=== PATIENT | female | born 1985 | race African-American/Black ===

== ENCOUNTER → 2023-05-28 14:46 | Outpatient (BNVA) | payer OTHER, SELFPAY | PROVIDERS: Visit Provider Physician Assistant ==

== ENCOUNTER 2023-07-24 08:47 | Outpatient (AMB) | payer OTHER, SELFPAY ==
--- NOTE | 2023-07-24 08:50 | A.OFFVIS_ITS ---
Intake VS Expanded 07/24/23 09:06 BP 119/56 L Blood Pressure Location Rt brachial Blood Pressure Position Sitting Pulse 104 H Pulse Source Pulse Oximeter Temp 98.3 F Temperature Source Tympanic Pulse Oximetry 96 Oxygen Delivery Method Room Air Height 5 ft 6 in Weight 220 lb 3.2 oz BMI 35.5 Body Fat % 42.5 Body Fat Mass 93.4 Fat Free Mass 126.6 Visceral Fat Rating 10.0 Body Water % 41.1 Body Water Mass 90.4 Muscle Mass/Score 120.2 Basal Metabolic Rate/Score 1,771 Intake Visit Reasons: (OV) Gastric Balloon Enrollment Coordinator Required: No Allergies No Known Allergies Allergy (Verified 07/24/23 08:55) HPI HPI Comments History of Present Illness Details Intake Template This is a 37 year old woman who is here to discuss her previous laparoscopic sleeve gastrectomy and obesity concerns. She is status post laparoscopic sleeve gastrectomy at [facility] in 2018. She reports her heaviest weight: 250 and states she lost 70 lb. She notes impulse control issues with respect to dietary choices and states that she has been put on medication to help with her impulse issues and they are not working. She has not contacted the prescriber to explain or concerns. She notes significant GERD worse with weight gain, and intermittent dysphagia related to eating and drinking at the same time Intolerance of dairy/lactose:? N Gluten Sensitivity:? N? Celiac? 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 otherwise denies sleep apnea, diabetes, hypertension, lipid disorders PSH: lap sleeve gastrectomy 2018, [facility] She wakes at:?bed at: Breakfast:?Not following a diet & not interested; Lunch:? snack: Dinner:?snack: After dinner: Other snacks: Liquids: Alcohol intake: ???occ? nicotine: ?denied? marijuana: ??denied? drugs:??denied? caffeine: coffee, sugar & cream Exercise: not exercising & not interested in a plan Last mammogram: N/A Last pap smear: UTD control method: Nexplanon Colonoscopy: N/A HERBER: 1 ESS: 9 GERD: 22 QOL: 78 PFSH Surgical History (Updated 07/24/23 @ 09:08 by Joshua Anand MD, FACS, FASS) Hx of laparoscopic partial gastrectomy Social History (Updated 07/24/23 @ 08:57 by Edyta Miguel, [facility]) Alcohol intake: current Alcohol intake frequency: holidays/special occasions only Alcohol type: hard liquor Patient Tobacco Use Status: Never used Tobacco Review of Systems Const All systems reviewed & are unremarkable except as noted in HPI and below Reports as per HPI Physical Exam On exam, the patient is nontoxic She is animated and talkative but in no acute distress She is having no respiratory difficulty Abdomen is obese but soft with no tenderness Assessment & Plan Assessment & Plan (1) S/P laparoscopic sleeve gastrectomy: Code(s): Z98.84 - Bariatric surgery status (2) BMI 35.0-35.9,adult: Code(s): Z68.35 - Body mass index [BMI] 35.0-35.9, adult (3) GERD (gastroesophageal reflux disease): Code(s): K21.9 - Gastro-esophageal reflux disease without esophagitis Plan The patient initially indicated that she was hopeful she could have a gastric balloon placed, but then expressed concerns regarding her impulsivity and medications not working and asked if I could prescribe a different medication to address her poor diet. The importance of a low-fat/high-fiber/low-carbohydrate and high-protein diet to optimize surgical weight loss was discussed and apparently understood, but the patient noted repeatedly impulse issues that affect her success. She notes that she has seen behavioral health or a psychiatrist who prescribed medications and has not followed up with them. I also reviewed the risk of GERD related to her weight regain and sleeve. I explained that there may be a structural issue with her sleeve that may be amenable to revision, however, without proper diet and exercise, there would be no benefit and she would likely continue to gain weight due to her impulse issues and poor diet. Patient seemed understand the importance of following up with her prescribing physicians regarding her symptoms and has given permission verbally to communicate with them. Patient is interested in obtaining a workup but declined a meal plan or in exercise recommendation. She would like to follow-up after the fasting labs and diagnostic imaging is performed. Explained upfront that it is possible there will not be a problem that requires fixing other than her diet and exercise and she would still like to proceed. Coding Level of Care Code New Pt Level 4 (29368) Diagnoses S/P laparoscopic sleeve gastrectomy Z98.84 BMI 35.0-35.9,adult Z68.35 GERD (gastroesophageal reflux disease) K21.9
[2023-07-24 09:06] VITALS: BP 119/56; PULSE 104; TEMP 36.8; O2SAT 96; BMI 35.5
== END 2023-07-24 09:46 | disposition home or self-care (01) ==
PROVIDERS: Visit Provider Surgery
DX: E66.9 Obesity, unspecified (principal); Z68.35 Body mass index [BMI] 35.0-35.9, adult
CPT/HCPCS: 99204

== ENCOUNTER → 2023-07-24 08:47 | Outpatient (BNVA) | payer OTHER, SELFPAY | PROVIDERS: Visit Provider Surgery ==

== ENCOUNTER 2023-10-13 08:22 | Outpatient (REF) | payer OTHER, SELFPAY ==
--- NOTE | ~2023-10-13 | FL_ITS ---
EXAMINATION: XR FLUOROSCOPY UPPER GI WITH AIR CLINICAL INFORMATION: Postprandial epigastric pain. History of sleeve gastrectomy. COMPARISON: None TECHNIQUE: Fluoroscopic air contrast upper GI examination was performed utilizing standard techniques with thin and thick barium and effervescent granules. Numerous spot images were obtained. FINDINGS: Lateral cine images of the oropharynx and hypopharynx demonstrate normal swallow mechanism with normal epiglottic inversion and soft palate elevation. No tracheal penetration, glottic or subglottic aspiration identified. No nasopharyngeal reflux present. Hypopharyngeal structures appear normal without evidence of mass or diverticulum. There was no significant cricopharyngeal achalasia. Dual and single contrast images of the esophagus demonstrate normal caliber, contour, and mucosal pattern. No evidence of stricture, mass, or ulcerations identified. Esophageal peristalsis was normal. A small hiatal hernia is present. Gastroesophageal reflux is seen up to the thoracic inlet. Dual contrast and single contrast images of the stomach demonstrate a trilobed stomach, likely due to scarring from previous sleeve gastrectomy. Mucosal pattern is normal without evidence of mass, ulceration, or other abnormality. Due to the trilobed shape of the stomach, there is to and fro motion of the barium column prior to emptying into the duodenal bulb. Single and air-contrast images of the duodenal bulb demonstrate no abnormality. The duodenal sweep has a normal appearance, course, and mucosal fold appearance. The imaged proximal jejunum has a normal fold pattern and caliber. FLUOROSCOPY TIME: 4 minutes 4 seconds Number of Spot Images: 9 Number of Cine: 12 DOSE AREA PRODUCT: 3551 uGy-m2 (microgray-meter squared) FL/FL upper GI w air IMPRESSION: 1. Small type I hiatal hernia 2. Significant gastroesophageal reflux 3. 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 This results in a to and fro motion of the barium prior to emptying into the duodenal bulb. This procedure was performed by Fabiano Gil PA-C, and supervised by Dr. Thornton
== END 2023-10-13 08:23 | disposition home or self-care (01) ==
LOC: HO.XRAY 08:22
PROVIDERS: Visit Provider Physician Assistant
DX: K21.9 Gastro-esophageal reflux disease without esophagitis (principal); Z98.84 Bariatric surgery status
CPT/HCPCS: 74246

== ENCOUNTER → 2023-10-13 08:27 | Outpatient (BNV) | payer OTHER, SELFPAY | PROVIDERS: Visit Provider Radiology Diagnostic Radiology | DX: R10.13 Epigastric pain (principal); K44.9 Diaphragmatic hernia without obstruction or gangrene | CPT/HCPCS: 74246 ==

== ENCOUNTER → 2023-10-30 14:48 | Outpatient (BNVA) | payer OTHER, SELFPAY | PROVIDERS: Visit Provider Physician Assistant Surgical ==

== ENCOUNTER 2023-11-18 14:19 | Outpatient (AMB) | payer OTHER, SELFPAY ==
--- NOTE | 2023-11-18 14:24 | A.OFFVIS_ITS ---
Intake VS Expanded 11/18/23 14:41 BP 125/66 Blood Pressure Location Rt brachial Blood Pressure Position Sitting Pulse 70 Pulse Source Pulse Oximeter Temp 98.2 F Temperature Source Temporal Artery Scan Pulse Oximetry 100 Oxygen Delivery Method Room Air Height 5 ft 6 in Weight 220 lb BMI 35.5 Body Fat % 43.0 Body Fat Mass 94.6 Fat Free Mass 125.2 Visceral Fat Rating 10.0 Body Water % 40.7 Body Water Mass 89.6 Muscle Mass/Score 118.8 Basal Metabolic Rate/Score 1,756 Intake Visit Reasons: (ov) Gastric Balloon to [facility] Charging Operator Required: Yes Charging Operator Name: office cmi Allergies No Known Allergies Allergy (Verified 11/18/23 14:31) Medication List - Last Reconciled 11/18/23 by FLORIN Keating etonogestrel (Nexplanon) subdermal methocarbamol 750 mg PO BEDTIME HPI HPI Comments History of Present Illness Details Pt [place] [facility] [place] [facility] [place]. Her goal is to lose weight and achieve a healthy lifestyle. She states that she had the sleeve gastrectomy performed at [facility] by Dr. Menezes in 2016. Her lowest weight was 190 lb. She reports first being concerned about her weight [], highest weight to date was []. Current weight is 220 pounds with a BMI of 35.5. She has tried multiple methods of weight loss including previous LSG at [facility] 03/12/16. She lives with []. She works [] days per week. 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 Breakfast: cream of wheat, 1 egg, sweet bread AM snack: coffee cream and sugar and multi grain crackers Lunch: skip PM snack: sour cream and onion chips Dinner: rice, beans,meat, salad After dinner: cheerios dry (cup) Other snacks: lots of sweet bread Liquids: 64-80 oz water, 12-24 oz coke weekly, 8 oz passionfruit or grape juice 2 x per week Alcohol/marijuana/tobacco intake: 32 oz mojito 2 x per month, no cannabis or tobacco Exercise: PF, 3 days per week, elliptical, treadmill 45 minutes total, GERD score: 22 HERBER score: 1 ESS score: 9 QOL score: 78 [facility] Surgical History Hx of laparoscopic partial gastrectomy Social History Alcohol intake: current Alcohol intake frequency: holidays/special occasions only Alcohol type: hard liquor Patient Tobacco Use Status: Never used Tobacco Physical Exam Const General: healthy appearing and no acute distress Resp Effort & Inspection: normal respiratory effort Auscultation: clear to auscultation bilaterally Cardio Rate: regular rate Rhythm: regular rhythm GI Auscultation: normal bowel sounds Extrem General: Yes normal to inspection Assessment & Plan Assessment & Plan (1) Obesity (BMI 30-39.9): Code(s): E66.9 - Obesity, unspecified Plan: This is a?37 yo female who has a history of sleeve gastrectomy performed in [address] Menezes at [facility]. She has since regained weight, approximately 30 lb. She wishes to pursue a healthy lifestyle and we will do so through a structured meal and exercise plan. ? Purchase body composition analyzer scale ([employer] recommended) and check weight weekly. The best time to do this is first thing in the morning after going to the bathroom. 1. Nutritional counseling: Be sure to careful read the number of scoops per shake Start with 2 Equate shakes ([employer]), (1/2 scoop in 10 oz unsweetened almond milk each) First shake about 1 hour after waking up drank slowly over 2 hours 2 hours later start your second shake. Also drink this slowly over 2 hours 2 hours later have your protein bar 1 protein bar ([employer] Perfect at [facility], [facility], [place]). Dinner when you get home from work (7 forks of protein and 7 forks of salad/vegetables). Meal to include lean meat (beef, fish, pork, turkey, chicken), cooked vegetables or a salad with olive oil and/or fruits (berries, pears, apples, kiwi). Avoid salt, breads, potatoes, rice, pasta, desserts. 1/2 cup of fresh fruit (berries or an apple or pear or kiwi) 1.5-2 hours after dinner if you wish. Try to drink 64 oz of water daily and avoid soda and juices. ?2. Each shake would be drunk slowly, like coffee in a period of 2 hours. ?3. Cut each bar in 4 pieces and eat each piece in 30 min ?to make each bar last 2 hours. ?4. I emphasized the importance of measuring accurately the food portion and measure it carefully when serving the food on the plate ?5. The meal portions include 7 full-size forks of meat and 7 full-size forks of salad. You always eat the meat portion but you can replace up to half of the forks of salad/vegetables with rice, potatoes or pasta, or a fruit ?if you like. The less you do it the better weight loss will be. ?6. One full-size fork is what can be scooped on the fork without falling aside and not what can be bit with the fork. Use regular forks like those you find in a typical restaurant. ?7.? Please send me weight measurements as soon as possible and then once a week. Always include your diet and exercise plan. Alternatively come weekly at the office for weight checks and send me the measurements. ?8. Exercise counseling: Begin by watching a stretching for beginners video. Start slowly and begin to stretch your muscles. You should do this before and after each exercise session to prevent injury. Please continue to go to [employer] gym near your home. Ask the manager contract or one of the trainers how to use the machines if you are unfamiliar with them. Start elliptical with a resistance of 2. Increase resistance by 1 every 3 min to your most comfortable resistance with a max resistance of 8. Reduce the resistance by 1 every 3 minutes back down to 2 and repeat cycles for 300 calories. Alternatively, start treadmill with a speed of 3.0 and incline of 0, increasing incline by 1 every 3 minutes to the highest comfortable level (max 6 for now) then decrease in the same fashion. Repeat process to a goal of 300 calories. Goal of 2000 calories burned or more weekly. You may also consider use of the stationary bike. The easiest would be to chose the fat-burn or interval training program on the machine and do this until you reach the 300 calorie goal. Alternatively, you can manually adjust the resistance in a similar fashion as mentioned above, (resistance of 2-8 with a goal speed of 12 mph). Tracking calories is essential. 9. Alternatively start walking outside daily, tracking calories with a goal of 300 calories per day, daily. You can download the soto Oat[employer] which can track your time, distance and calories while walking outside. You press start in the soto when you start and then stop when you are finished. 10.? It is important to communicate by text with me weekly 11. Please follow the diet plan exactly, without any change. If you do not like something about the plan or you feel hungry, you need to communicate with me so I can help you revise the plan. You should not change the plan yourself. Text me at [phone] 12. Goal is to lose at least 10 pounds in the first month Patient is morbidly obese and is not considered stable at this time.?I spent a total of 70 minutes reviewing/updating records, examining the patient and counseling the patient on weight management as detailed above. Coding Level of Care Code Est Pt Level 4 (51830) Diagnoses Obesity (BMI 30-39.9) E66.9 Time Spent (min) 70
[2023-11-18 14:41] VITALS: BP 125/66; PULSE 70; TEMP 36.8; O2SAT 100; BMI 35.5
== END 2023-11-18 15:35 | disposition home or self-care (01) ==
PROVIDERS: Visit Provider Physician Assistant Surgical
DX: E66.9 Obesity, unspecified (principal)
CPT/HCPCS: 99214

== ENCOUNTER → 2023-11-18 14:19 | Outpatient (BNVA) | payer OTHER, SELFPAY | PROVIDERS: Visit Provider Physician Assistant Surgical ==

== ENCOUNTER 2024-01-22 08:19 | Outpatient (AMB) | payer OTHER, SELFPAY ==
--- NOTE | 2024-01-22 08:22 | A.OFFVIS_ITS ---
VS Expanded 01/22/24 08:28 BP 124/61 Blood Pressure Location Rt brachial Blood Pressure Position Sitting Pulse 66 Pulse Source Pulse Oximeter Temp 97.9 F Temperature Source Tympanic Pulse Oximetry 96 Oxygen Delivery Method Room Air Height 5 ft 6 in Weight 214 lb 12.8 oz BMI 34.7 Body Fat % 41.7 Body Fat Mass 89.6 Fat Free Mass 125.2 Visceral Fat Rating 10.0 Body Water % 41.7 Body Water Mass 89.6 Muscle Mass/Score 118.8 Basal Metabolic Rate/Score 1,764 Intake Visit Reasons: (OV) F/U SWL Security System Analyst Required: No Allergies No Known Allergies Allergy (Verified 11/18/23 14:31) Medication List - Last Reconciled 01/22/24 by FLORIN Keating etonogestrel (Nexplanon) subdermal HPI Comments Details: Patient is a pleasant 38-year-old female who returns to the office today in follow-up for medical weight loss. She has a history of sleeve gastrectomy performed by Dr Mcgovern 03/12/2016. She was seen for the 1st time in our office on 11/18/2023 at that time her weight was 220 lb with a BMI of 35.5. Weight today is 214.8 lb with a BMI of 34.7. She has lost 5.2 pounds or 2.3 % TBWL. She was in [place] for the last month. She states she had to switch to [employer]. 2 Equate shakes ([employer]), (1/2 scoop in 10 oz unsweetened almond milk each) First shake about 1 hour after waking up drank slowly over 2 hours 2 hours later start your second shake. Also drink this slowly over 2 hours 2 hours later have your protein bar 1 protein bar ([employer] Perfect at [employer], [employer], [place]). Dinner when you get home from work (7 forks of protein and 7 forks of salad/vegetables). 1/2 cup of fresh fruit (berries or an apple or pear or kiwi) 1.5-2 hours after dinner if you wish. drinking 96 oz water no soda or juice Exercise treadmill and elliptical, 15 min, 25 min , 150 keron total, 5 x per week. [facility] Surgical History Hx of laparoscopic partial gastrectomy Social History Alcohol intake: current Alcohol intake frequency: holidays/special occasions only Alcohol type: hard liquor Patient Tobacco Use Status: Never used Tobacco Physical Exam Const General: cooperative, healthy appearing and no acute distress Orientation/consciousness: patient oriented x3 HEENT Head: Yes normal to inspection Ears: hearing grossly normal bilaterally General nose exam: Normal external nose present Face and sinus: Yes normal facial exam Eyes General: appearance normal, both eyes and all related structures Resp Effort & Inspection: normal respiratory effort Auscultation: clear to auscultation bilaterally Cardio Rate: regular rate Rhythm: regular rhythm Heart sounds: S1 normal heart sound present and S2 normal heart sound present GI Inspection: Yes normal to inspection, No distended and Yes obesity Palpation (GI): Soft to palpation, nontender and no guarding Auscultation: normal bowel sounds Neuro General: patient oriented x3 Extrem General: No edema Psych Appearance: grossly normal Mental Status: mental status grossly normal Speech and movement: Normal speech and movement present Affect: normal affect Attitude: cooperative Assessment & Plan Assessment & Plan (1) Obesity (BMI 30-39.9): Code(s): E66.9 - Obesity, unspecified Category: Medical Plan: Change meal plans slightly: Premier protein, 1 scoop per shake First shake about 1 hour after waking up drank slowly over 2 hours 2 hours later start your second shake. Also drink this slowly over 2 hours 2 hours later have your protein bar 1 protein bar ([employer] Perfect at [facility], [facility]). Dinner when you get home from work (7 forks of protein and 7 forks of salad/vegetables). 1/2 cup of fresh fruit (berries or an apple or pear or kiwi) 1.5-2 hours after dinner if you wish. drinking 96 oz water no soda or juice Recommend increase calories burned at the gym, if she is going to go 5 days per week, 400 calories total between the elliptical and treadmill. She will return to the clinic in 6 weeks
[2024-01-22 08:28] VITALS: BP 124/61; PULSE 66; TEMP 36.6; O2SAT 96; BMI 34.7
== END 2024-01-22 08:51 | disposition home or self-care (01) ==
PROVIDERS: Visit Provider Physician Assistant Surgical
DX: E66.9 Obesity, unspecified (principal)
CPT/HCPCS: 99213

== ENCOUNTER → 2024-01-22 08:19 | Outpatient (BNVA) | payer OTHER, SELFPAY | PROVIDERS: Visit Provider Physician Assistant Surgical ==

== ENCOUNTER 2025-04-07 11:26 | Outpatient (AMB) | payer OTHER, SELFPAY ==
--- NOTE | 2025-04-07 11:27 | MHC.OFFVISWM ---
VS Expanded 04/07/25 11:28 BP 137/66 Blood Pressure Location Rt brachial Blood Pressure Position Sitting Pulse 90 Pulse Source Pulse Oximeter Temp 97.5 F Temperature Source Temporal Artery Scan Pulse Oximetry 97 Oxygen Delivery Method Room Air Height 5 ft 6 in Weight 228 lb 12.8 oz BMI 36.9 Body Fat % 42.4 Body Fat Mass 97.0 Fat Free Mass 131.6 Visceral Fat Rating 10.0 Body Water % 41.2 Body Water Mass 94.2 Muscle Mass/Score 125.0 Basal Metabolic Rate/Score 1,838 Intake Visit Reasons: OV F/U SWL Allergies No Known Allergies Allergy (Verified 04/07/25 11:29) HPI Comments Details: Patient is a pleasant 39-year-old female who returns to the office today in follow-up for medical weight loss. She has a history of sleeve gastrectomy performed by Dr Mcgovern 03/12/2016. She was seen for the 1st time in our office on 11/18/2023 at that time her weight was 220 lb with a BMI of 35.5. She was last seen in the office on 01/22/2024 with a weight of 214.8 lb. Weight today is 228.8 lb with a BMI of 36.9. She states that she has not been seen in the office for over a year because she has been busy working. She is not happy that she has regained so much weight and would like to try to lose it again. She states she is trying to follow a meal plan: junk food Exercise has treadmill and elliptical and rowing machine treadmill and elliptical, 15 min, 25 min , 150 keron total, 5 x per week. PFSH Surgical History Hx of laparoscopic partial gastrectomy Social History Alcohol intake: current Alcohol intake frequency: holidays/special occasions only Alcohol type: hard liquor Patient Tobacco Use Status: Never used Tobacco Physical Exam Vital Signs: Last Vital Signs Temp 97.5 F 04/07/25 11:28 Pulse 90 04/07/25 11:28 BP 137/66 04/07/25 11:28 Pulse Ox 97 04/07/25 11:28 Oxygen Delivery Method Room Air 04/07/25 11:28 BMI result Body Mass Index 36.9 Const General: healthy appearing and no acute distress Resp Effort & Inspection: normal respiratory effort Auscultation: clear to auscultation bilaterally Cardio Rate: regular rate Rhythm: regular rhythm GI Auscultation: normal bowel sounds Extrem General: Yes normal to inspection Assessment & Plan Assessment & Plan (1) S/P laparoscopic sleeve gastrectomy: Code(s): Z98.84 - Bariatric surgery status Category: Surgical Plan: Patient given information regarding right BMI soto. Discussed the importance of exercise. She has multiple cardiovascular machines in her house including a treadmill, stationary bike and rowing machine. The goal is 350 calories burned per day, 7 days a week. She will text with any questions or concerns. We will have her follow-up in the office in approximately 1 month
[2025-04-07 11:28] VITALS: BP 137/66; PULSE 90; TEMP 36.4; O2SAT 97; BMI 36.9
--- OUTSIDE RECORDS SUMMARY | 2025-04-07 11:28 | XMS_ITS | Clinical Summary ---
Author Organization [address] [place] [address] Address [address] [place] [address] Phone Care Team Providers Care Planning Rn Name Role Phone Natalia Cueto MD Primary Care Provider [phone] Allergies No known active allergies Medications etonogestrel-eluti ng contraceptive device (Nexplanon) 68 mg implant subdermal implant Inject 1 each under the skin 1 (one) time. 2 Active ergocalciferol (VITAMIN D-2) 1,250 mcg (50,000 unit) capsuleIndications :Vitamin D deficiency Take 1 capsule (50,000 Units total) by mouth 1 (one) time per week for 8 doses. 8 each 5 04/29/20 25 Active Active Problems Problem Noted Date Diagnosed Date Class 2 obesity with body ma ss index (BMI) of 37.0 to 37.9 in adult 09/01/2024 Positive QuantiFERON-TB Gold test 10/07/2021 Cold intolerance 07/19/2019 Hair loss 07/19/2019 Recurrent periodic urticaria 07/19/2019 Vitamin D deficiency 03/22/2018 Intestinal malabsorption following gastrectomy 0 03/08/2018 Vitamin B12 deficiency 03/08/2018 Encounters Date Type Department Care Team Description 03/01/2025 1:15 PM EDT Office Visit Adult Medicine [address] [phone] Mert Carrillo PA Acute pain of left knee (Primary Dx) 03/01/2025 Telephone Adult Medicine [address] [phone] Mert Carrillo PA 01/11/2025 Telephone Bariatric Surgery - [address] [place] [address] Luly Mcgovern MD Medication Authorization from Last 3 Months Immunizations Name Administration Dates Next Due Pfizer SARS-CoV-2 COVID-19, mRNA, LNP-S, preservative free 01/02/2021,12/11/2020 Tdap Tetanus diptheria acell ular pertussis (Boostrix; Adacel) 7yo and older 03/22/2018 Surgical History Surgery Date Site/Laterality Comments BARIATRIC SURGERY 03/12/2016 PROCEDURE: GA LAPS GSTRC RSTRICTIV PX LONGITUDINAL GASTRECTOMY; COMMENT: Morbid Obesity class 3, BMI 40; path report, gastic sleeve Medical History Medical History Date Comments 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/12/2016 DX :History of sleeve gastrectomy; COMMENT: [facility], path report History of Helicobacter pylo ri infection 04/05/2018 DX:History of Helicobacter p ylori infection Positive QuantiFERON-TB Gold test 10/07/2021 DX:Positive QuantiFERON-TB Gold test Family History Medical History Relation Name Comments Diabetes Father Hypertension Father unsure, gynecol ogic cancer Diabetes Mother Hypertension Mother Diabetes Sister Other cancer Sister unsure, precan cerous gynecologic Relation Name Status Comments Father Mother Sister Social History Tobacco Use Types Packs/Day Years Used Date Smoking Tobacco: Never Smokeless Tobacco: Never Tobacco Cessation:Counseling Given: Not Answered Alcohol Use Standard Drinks/Week Comments Yes 0 (1 standard drink = 0.6 oz pur e alcohol) Housing Instability Answer Date Recorde d Are you worried that in the next 2 months you may not have stable housing? No 11/09/2024 Food Access & Nutrition Answer Date Rec orded Do you have access to a vari ety of food including fruits and vegetables? Yes 11/09/2024 Access to Healthcare Answer Date Record ed Within the last 3 months, ho w many times did you visit the emergency department for your medical care? 0 11/09/2024 Health Literacy Answer Date Recorded How often do you need to hav e someone help you when you read instructions, pamphlets, or other written material from your doctor or pharmacy? Never 11/09/2024 Caregiver: How often do you need to have someone help you when you read instructions, pamphlets, or other written material from your doctor or pharmacy? Not on file 11/09/2024 Financial Risk Answer Date Recorded How hard is it for you to pa y for the very basics like food, housing, medical care, and air conditioning / heating? Not very hard 11/09/2024 Transportation Answer Date Recorded Has the lack of transportati on kept you from meetings, work, or from getting things needed for daily living? No Has the lack of transportati on kept you from medical appointments or from getting medications? No 11/09/2024 Social Isolation Answer Date Recorded How often do you feel lonely or isolated from th ose around you? Rarely 11/09/2024 Food Risk Answer Date Recorded Within the past 12 months we worried whether our food would run out before we got money to buy more. Never true 11/09/2024 Within the past 12 months th e food we bought just didn't last and we didn't have money to get more. Never true 11/09/2024 Dependent Care Answer Date Recorded Do you need help finding or paying for care for your loved ones. For example, housekeeper child care or elderly care for an older adult? No 11/09/2024 Education Answer Date Recorded Do you think completing more education or training, like finishing a GED, going to college, or learning a trade, would be helpful for you? No 11/09/2024 Employment and Income Answer Date Recor ded During the last four weeks, have you been actively looking for work? No 11/09/2024 Living Situation Answer Date Recorded What is your living situation? 0 11/09/2024 Comments Unknown Sex and Gender Information Value Date Recorded Sex Assigned at Not on file Legal Sex Female 1:55 PM EST Gender Identity Not on file Sexual Orientation Not on file Obstetrics History Last Filed Vital Signs Vital Sign Reading Time Taken Comments Blood Pressure 100/70 03/01/2025 1:13 PM EDT Pulse 76 03/01/2025 1:13 PM EDT Temperature 36.3 C (97.4 F) 03/01/2025 1:13 PM EDT Respiratory Rate 14 03/01/2025 1:13 PM EDT Oxygen Saturation - - Inhaled Oxygen Concentration - - Weight 102 kg (224 lb 8 oz) 03/01/2025 1:13 PM E DT Height 167.6 cm (5' 6 ) 03/01/2025 1:13 PM EDT Body Mass Index 36.24 03/01/2025 1:13 PM EDT Plan of Treatment Upcoming Encounters Date Type Department Care Team (Late st Contact Info) Description 04/14/2025 10:15 AM EDT Office [facility] [address] [place] [phone] Christiano Short MD [address] [place] [address] 04/18/2025 8:30 AM EDT Office Visit Adult Medicine [facility] [address] [place] [phone] Mert Carrillo PA [address] [place] [address] 05/18/2025 9:15 AM EDT Office Visit Bariatric Surgery [facility] [address] [phone] Luly Mcgovern MD [address] [address] Health Maintenance Due Date Last Done Comments Breast Cancer Screening 1983 Hepatitis B Vaccines (1 of 3 - 19+ 3-dose series) 12/18/2002 Cervical Cancer Screening: P ap Smear 12/18/2004 HIV Screening 08/13/2022 Hepatitis C Screening 08/13/2022 COVID-19 Vaccine (3 - 2023-2 5 season) 2024 01/02/2021, 12/11/2020 Influenza Vaccine (#1) 2025 Social Influencers of Health Screening 11/09/2025 11/09/2024 DTaP,Tdap,and Td Vaccines (2 - Td or Tdap) 03/22/2028 03/22/2018 Cholesterol Screening (Lipid Panel) 03/09/2030 03/09/2025, 04/30/2023 Depression Screening Completed 11/09/2024 HIB Vaccines Aged Out No longer eligi ble based on patient's age to complete this topic HPV Vaccines Aged Out No longer eligi ble based on patient's age to complete this topic Hepatitis A Vaccines Aged Out No long er eligible based on patient's age to complete this topic IPV Vaccines Aged Out No longer eligi ble based on patient's age to complete this topic MMR Vaccines Aged Out No longer eligi ble based on patient's age to complete this topic Meningococcal ACWY Vaccine Aged Out N o longer eligible based on patient's age to complete this topic Meningococcal B Vaccine Aged Out No l onger eligible based on patient's age to complete this topic Pneumococcal Vaccine: Pediatrics (0 to 5 Years) and At-Risk Patients (6 to 49 Years) Aged Out No longer eligible b ased on patient's age to complete this topic RSV Immunization Patients Under 20 months Aged Out No longer eligible b ased on patient's age to complete this topic Varicella Vaccines Aged Out No longer eligible based on patient's age to complete this topic Procedures Procedure Name Priority Date/Time Associated Diagnosis Comments ZINC Routine 03/09/2025 9:08 AM EDT Postgastrectomy malabsorption VITAMIN D 25 HYDROXY Routine 03/09/2025 9:08 AM EDT Postgastrectomy malabsorption VITAMIN B12 Routine 03/09/2025 9:08 AM EDT Postgastrectomy malabsorption IRON AND TIBC Routine 03/09/2025 9:08 AM EDT Postgastrectomy malabsorption COMPREHENSIVE METABOLIC PANEL Routine 03/09/2025 9:08 AM EDT Postgastrectomy malabsorption HEMOGLOBIN A1C Routine 03/09/2025 9:08 AM EDT Class 2 obesity due to excess calories without serious comorbidity with body mass index (BMI) of 35.0 to 35.9 in adult THYROID STIMULATING HORMONE Routine 03/09/2025 9:08 AM EDT Class 2 obesity due to excess calories without serious comorbidity with body mass index (BMI) of 35.0 to 35.9 in adult LIPID PANEL WITH REFLEX TO DIRECT LDL Routine 03/09/2025 9:08 AM EDT Class 2 obesity due to excess calories without serious comorbidity with body mass index (BMI) of 35.0 to 35.9 in adult from Last 3 Months Results * (ABNORMAL) Lipid panel with reflex to direct LDL (03/09/2025 9:08 AM EDT) Cholesterol 183 0 - 200 mg/dL LAB CHEMISTRY METHOD 03/09/2025 3:27 PM EDT [facility] Triglycerides 50 0 - 150 mg/dL LAB CHEMISTRY METHOD 03/09/2025 3:27 PM EDT [facility] HDL 66 >=40 mg/dL LAB CHEMISTRY METHOD 03/09/2025 3:27 PM EDT [facility] LDL Calculated 107(H) 0 - 100 mg/dL LAB CHEMISTRY METHOD 03/09/2025 3:27 PM EDT [facility] VLDL Cholesterol Charles 10 mg/dL LAB CHEMISTRY METHOD 03/09/2025 3:27 PM EDT [facility] Non HDL Chol. (LDL+VLDL) 117 <145 mg/dL LAB CHEMISTRY METHOD 03/09/2025 3:27 PM EDT [facility] Chol/HDL Ratio 2.8 0.0 - 4.4 LAB CHEMISTRY METHOD 03/09/2025 3:27 PM EDT [facility] Blood Venous blood specimen / Unknown Venipuncture / Unknown 03/09/2025 9:08 AM EDT 03/09/2025 9:08 AM EDT us Luly Mcgovern MD LAB BLOOD ORDERABLES Final R esult [facility] [address] [place] [address], [place] [phone] * Iron and TIBC (03/09/2025 9:08 AM EDT) Iron 80 40 - 150 mcg/dL LAB CHEMISTRY METHOD 03/09/2025 3:06 PM EDT [facility] TIBC 374 250 - 450 mcg/dL LAB CHEMISTRY METHOD 03/09/2025 3:06 PM EDT [facility] Iron Saturation 21 15 - 50 % LAB CHEMISTRY METHOD 03/09/2025 3:06 PM EDT [facility] Blood Venous blood specimen / Unknown Venipuncture / Unknown 03/09/2025 9:08 AM EDT 03/09/2025 9:08 AM EDT us Luly Mcgovern MD LAB BLOOD ORDERABLES Final R esult Performing Organization Address City/[facility]/ZIP Co de Phone Number [facility] [address] [place] [address], * Zinc (03/09/2025 9:08 AM EDT) Zinc 62 60 - 130 ug/dL 03/13/2025 12:04 PM EDT [facility] Comment: Elevated results may be due to sample collected in a non-certified trace element-free tube. This test was developed and the performance characteristics determined by [facility]. It has not been cleared or approved by the FDA. The laboratory is regulated under CLIA as qualified to perform high-complexity testing. This test is used for patient testing purposes. It should not be regarded as investigational or for research. Test performed at [facility], [address] , [place] [address] Demetria Palmer MD, PhD - Recovery Room Nurse Blood Venous blood specimen / Unknown Venipuncture / Unknown 03/09/2025 9:08 AM EDT 03/09/2025 9:08 AM EDT us Luly Mcgovern MD LAB BLOOD ORDERABLES Final R esult [facility] [address] [place] [address] * (ABNORMAL) Vitamin D 25 hydroxy (03/09/2025 9:08 AM EDT) [facility] Vit D, 25-Hydroxy 12.8(L) 30.0 - 80.0 ng/mL LAB CHEMISTRY METHOD 03/09/2025 5:05 PM EDT [facility] Blood Venous blood specimen / Unknown Venipuncture / Unknown 03/09/2025 9:08 AM EDT 03/09/2025 9:08 AM EDT us Luly Mcgovern MD LAB BLOOD ORDERABLES Final R esult [facility] [address] [place] [address], [place] [phone] * Thyroid stimulating hormone (03/09/2025 9:08 AM EDT) [facility] TSH 1.88 0.40 - 4.00 mcIU/mL LAB CHEMISTRY METHOD 03/09/2025 5:05 PM EDT [facility] Blood Venous blood specimen / Unknown Venipuncture / Unknown 03/09/2025 9:08 AM EDT 03/09/2025 9:08 AM EDT us Luly Mcgovern MD LAB BLOOD ORDERABLES Final R esult [facility] [address] [place] [address], [place] [phone] * Hemoglobin A1c (03/09/2025 9:08 AM EDT) [facility] Hemoglobin A1C 5.5 <6.5 % LAB CHEMISTRY METHOD 03/09/2025 1:41 PM EDT [facility] Mean Bld Glu Estim. 111 mg/dL LAB CHEMISTRY METHOD 03/09/2025 1:41 PM EDT [facility] Blood Venous blood specimen / Unknown Venipuncture / Unknown 03/09/2025 9:08 AM EDT 03/09/2025 9:08 AM EDT Luly Mcgovern MD LAB BLOOD ORDERABLES Final R esult [facility] [address] [place] [address], [place] [phone] * Vitamin B12 (03/09/2025 9:08 AM EDT) [facility] Vitamin B-12 261 250 - 900 pcg/mL LAB CHEMISTRY METHOD 03/09/2025 3:27 PM EDT [facility] Blood Venous blood specimen / Unknown Venipuncture / Unknown 03/09/2025 9:08 AM EDT 03/09/2025 9:08 AM EDT us Luly Mcgovern MD LAB BLOOD ORDERABLES Final R esult [facility] [address] [place] [address], [place] [phone] * (ABNORMAL) Comprehensive metabolic panel (03/09/2025 9:08 AM EDT) [facility] Sodium 139 133 - 145 mmol/L LAB CHEMISTRY METHOD 03/09/2025 3:06 PM EDT [facility] Potassium 4.5 3.5 - 5.5 mmol/L LAB CHEMISTRY METHOD 03/09/2025 3:06 PM EDT [facility] Chloride 110 96 - 110 mmol/L LAB CHEMISTRY METHOD 03/09/2025 3:06 PM EDT [facility] CO2 24 21 - 32 mmol/L LAB CHEMISTRY METHOD 03/09/2025 3:06 PM EDT [facility] Anion Gap 5 3 - 11 LAB CHEMISTRY METHOD 03/09/2025 3:06 PM [facility] Glucose 76 70 - 100 mg/dL LAB CHEMISTRY METHOD 03/09/2025 3:06 PM [facility] BUN 10 5 - 25 mg/dL LAB CHEMISTRY METHOD 03/09/2025 3:06 PM [facility] Creatinine 0.58 0.50 - 1.10 mg/dL LAB CHEMISTRY METHOD 03/09/2025 3:06 PM [facility] eGFR 117 >=60 mL/min/1. 73m2 LAB CHEMISTRY METHOD 03/09/2025 3:06 PM [facility] Comment:Calculation based on the Chronic Kidney Disease Epidemiology Collaboration (CKD-EPI) equation refit without adjustment for race. BUN/Creatinine Ratio 17.2 LAB CHEMISTRY METHOD 03/09/2025 3:06 PM [facility] Calcium 8.4(L) 8.5 - 10.5 mg/dL LAB CHEMISTRY METHOD 03/09/2025 3:06 PM [facility] AST (SGOT) 10 10 - 42 unit/L LAB CHEMISTRY METHOD 03/09/2025 3:06 PM [facility] ALT (SGPT) 15 10 - 60 unit/L LAB CHEMISTRY METHOD 03/09/2025 3:06 PM [facility] Alkaline Phosphatase 73 42 - 121 unit/L LAB CHEMISTRY METHOD 03/09/2025 3:06 PM [facility] Total Protein 6.8 6.0 - 8.0 g/dL LAB CHEMISTRY METHOD 03/09/2025 3:06 PM [facility] Albumin 3.7 3.2 - 5.0 g/dL LAB CHEMISTRY METHOD 03/09/2025 3:06 PM [facility] Total Bilirubin 0.4 0.0 - 1.4 mg/dL LAB CHEMISTRY METHOD 03/09/2025 3:06 PM [facility] Blood Venous blood specimen / Unknown Venipuncture / Unknown 03/09/2025 9:08 AM EDT 03/09/2025 9:08 AM EDT us Luly Mcgovern MD LAB BLOOD ORDERABLES Final R esult [facility]) [facility] [address] [place] [address], from Last 3 Months Insurance [employer] Care Teams Planning Rn Relationship Specialty Start Date End Date Natalia Cueto MD [address] [place] [phone] PCP - General Internal Medicine 09/02/24
== END 2025-04-07 11:56 | disposition home or self-care (01) ==
LOC: HO.HBS 11:26
PROVIDERS: Visit Provider Physician Assistant Surgical
DX: E66.9 Obesity, unspecified (principal); Z68.36 Body mass index [BMI] 36.0-36.9, adult; Z90.3 Acquired absence of stomach [part of]; Z98.84 Bariatric surgery status
CPT/HCPCS: 99213